=== PATIENT | female | born 1980 ===

== ENCOUNTER 2025-10-15 09:00 | Day surgery (SDC) | payer OTHER ==
[2025-10-08 10:05] VITALS: BP 149/88
[2025-10-08 11:02] LABS: BASO % 0.8 % (0.1-1.2); EOS # 0.12 (0.04-0.54); EOS % 2.4 % (0.7-7.0); LYMPH # 1.45 (1.18-3.74); LYMPH % 29.3 % (19.3-53.1); MONO # 0.21 (0.24-0.82); MONO % 4.2 % (4.7-12.5); NEUT # 3.11 (1.56-6.13); NEUT % 62.9 % (34.0-71.1); RED CELL DISTRIBUTION WIDTH 22.9 % (11.6-14.4)
[2025-10-08 11:36] LABS: INR 1.01
[2025-10-08 11:45] LABS: URINE APPEARANCE Clear; URINE BILIRRUBIN Negative (NEGATIVE); URINE BLOOD Large; URINE COLOR Yellow; URINE GLUCOSE Negative (NEGATIVE); URINE KETONE Negative (NEGATIVE); URINE LEUKOCYTE Negative; URINE NITRATE Negative; URINE PROTEIN Negative (NEGATIVE); URINE UROBILINOGEN 0.2 E.U./dl
[2025-10-08 11:46] LABS: URINE BACTERIA 154.7 uL (0.0-1933); URINE CAST 0.00 uL (0.0-1.40); URINE EPITHELIAL CELLS 25.2 uL (0.0-38.8); URINE RBC 495.2 uL (0.0-20.8); URINE WBC 11.2 uL (0.0-23.2)
[2025-10-08 11:51] LABS: ALT/SGPT 40.0 U/L (12-78); AST/SGOT 29.0 U/L (15-37); BILIRUBIN TOTAL 0.33 mg/dL (0.3-1.2); BUN CREA RATIO 23.0 (7.0-25.0); CREATININE SERUM 0.44 mg/dL (0.55-1.02); GFR 153.94; GLOBULINA 3.5 G/DL (2.4-3.5); GLUCOSE FASTING 97.0 mg/dL (65-100); OSMOLALITY SERUM 282.0 MOSM/KG (275-295)
[~2025-10-15] VITALS: Ht 157.5 cm; Wt 61.2 kg
[~2025-10-15 09:00] MED LIST: KETOROLAC TROMETHAMINE 30 MG VIAL IU ONE; ONDANSETRON HCL 2 MG/ML VIAL IV ONE
[2025-10-15] MEDS ORDERED: CHLORHEXIDINE GLUCONATE 120 ML BOTTLE TOP ONE (09:45)
[2025-10-15] MEDS ORDERED: POVIDONE-IODINE 118 ML BOTT TOP ONE (09:45)
== END 2025-10-15 14:15 | disposition home or self-care (01) ==
LOC: CIR.AMB 09:00
PROVIDERS: ATTEND Obstetrics & Gynecology
DX: N95.0 Postmenopausal bleeding (principal); N84.0 Polyp of corpus uteri